=== PATIENT | female | born 1975 | race Caucasian/White ===

== ENCOUNTER → 2016-10-15 | Outpatient (CLI) | payer MEDICARE ==
[~2016-10-15] MED LIST: ASPIRIN 325 MG PO; ATENOLOL-CHLORT1 TA2 PO; CAMBIA50 MG PO; COLACE 100 MG PO; DIPHENHYDRAMINE PO; FERROUS SULFATE PO; HYDROXYZINE HCL50 MG PO; LISINOPRIL PO; LISINOPRIL-HCTZ1 T14 PO; METOPROLOL SUCC50 MG PO; NEXIUM PO; NORCO 10/325 PO; NORVASC PO
--- NOTE | ~2016-10-15 | US135 ---
[facility] A Service of [facility] & [facility] RADIOLOGY TEXT RESULTS PATIENT: SCOOTER QUINTERO LOCATION: CNIV : 75 UNIT #: [id number] AGE: [address]: Surya Kathleen MD SEX: F ORDER DR: [id number] [facility] [address] [place], [place] [address] [id number] O MR#: [id number] Acc #: [id number] NAME: SCOOTER QUINTERO : 1975 SEX: F STUDY DATE/TIME: 10/15/2016 11:21 UNIT: CNIV ROOM: STUDY DESCRIPTION: US U/L Ext Art Study Comp Viraj Attending Physician: Surya Kathleen M.D. Referring Physician: Surya Kathleen M.D. Ordering Physician: Surya Kathleen M.D. Primary Care Physician: Reed Dillard M.D. MEDICAL IMAGING REPORT This report is preliminary unless electronic signature is present EXAM Lower extremity arterial segmental pressures HISTORY Peripheral artery disease FINDINGS The right brachial pressure is 178 and the left brachial pressure is 181. The right upper thigh pressure is greater than 250, lower thigh 231, calf 221, dorsalis pedis 211, posterior tibial 210 and toe 198 for an ankle to brachial index of 1.17. The left upper thigh pressure is greater than 250, lower thigh greater than 250, calf 214, posterior tibial 196, dorsalis pedis 205, and toe 198 for an ankle to brachial index of 1.13. Doppler wave form analysis indicates a triphasic signal in the posterior tibial and dorsalis pedis arteries bilaterally. Pulse volume recording tracings demonstrate a good amplitude signal at all levels in both legs. Exercise stress test: The patient was able to exercise for 2 minutes no active disease 45 seconds. Onset of symptoms began at 1 minute and 3 seconds. Following exercise, ankle to brachial index on the right decreased from 1.17 to 0.95 and ankle to brachial index on the left decreased from 1.13 to 0.88. Neither leg returned to baseline after more than 8 minutes. IMPRESSION Normal perfusion to both legs at rest. Ankle to brachial index is 1.17 on STS. [facility] A Service of [facility] & [facility] RADIOLOGY TEXT RESULTS PATIENT: SCOOTER QUINTERO LOCATION: CNIV : 75 UNIT #: [id number] AGE: [address]: Surya Kathleen MD SEX: F ORDER DR: the right and 1.13 on the left. Mild exercise induced ischemia is demonstrated in both legs, but the patient was not able complete exercise. Dictated by... Alejandro Lozano M.D. THIS IS AN ELECTRONICALLY VERIFIED REPORT Alejandro Lozano M.D. at 10/16/2016 7:31 AM SBS/to TD: 10/15/2016 16:06 JOB #: [id number] MEDICAL IMAGING REPORT Page 1 of 1 COPY
== END | disposition home or self-care (01) ==
LOC: CNIV 11:00
DX: I73.9 Peripheral vascular disease, unspecified (principal); I99.8 Other disorder of circulatory system
CPT/HCPCS: 93923

== ENCOUNTER → 2016-10-17 | Outpatient (CLI) | payer MEDICARE ==
--- NOTE | ~2016-10-17 | MY11 ---
[facility] A Service of [facility] RADIOLOGY TEXT RESULTS PATIENT: SCOOTRE QUINTERO LOCATION: [facility] : 75 UNIT #: [id number] AGE: [address]: Eliu Marshall MD SEX: F ORDER DR: [id number] [address] [address] [id number] O MR#: [id number] Acc #: [id number] NAME: SCOOTER QUINTERO : 1975 SEX: F STUDY DATE/TIME: 10/17/2016 10:29 UNIT: [facility] ROOM: STUDY DESCRIPTION: MY Mammogram Screening Dig Viraj Attending Physician: Eliu Marshall M.D. Referring Physician: Eliu Marshall M.D. Ordering Physician: Eliu Marshlal M.D. Primary Care Physician: Reed Dillard M.D. MEDICAL IMAGING REPORT This report is preliminary unless electronic signature is present. EXAM Digital screening mammogram, 10/17/2016, [facility]. HISTORY 41-year-old woman baseline mammogram. Unknown family history, patient adopted. COMPARISON None TECHNIQUE Digital imaging of each breast was completed utilizing screening protocol. Review includes FDA-approved CAD device. FINDINGS Breast parenchyma is moderately dense and heterogeneous with fibroglandular opacities bilaterally. I see no dominant mass or suspicious mass characteristics. There are a few microcalcifications centrally located on the craniocaudal view of the right breast. These project near the level of the nipple line. These have benign characteristics and will be monitored. I see no architectural disturbance. IMPRESSION Benign mammogram. Annual screening recommended. Patients over the age of 40 are entered into a reminder system with target due date for the next mammogram. A result letter will also be sent to the patient. BIRADS: 2 Benign finding. [facility] A Service of [facility] RADIOLOGY TEXT RESULTS PATIENT: SCOOTER QUINTERO LOCATION: [facility] : 75 UNIT #: [id number] AGE: [address]: Eliu Marshall MD SEX: F ORDER DR: Dictated by... Mani Sosa M.D. THIS IS AN ELECTRONICALLY VERIFIED REPORT Mani Sosa M.D. at 10/17/2016 12:46 PM LUMA/lissa TD: 10/17/2016 11:52 JOB #: [id number] MEDICAL IMAGING REPORT Page 1 of 1
== END | disposition home or self-care (01) ==
LOC: SMAM 09:54
DX: Z12.31 Encounter for screening mammogram for malignant neoplasm of breast (principal); Z80.3 Family history of malignant neoplasm of breast
CPT/HCPCS: G0202